=== PATIENT | male | born 1935 | race African-American/Black ===

== ENCOUNTER 2021-11-16 11:58 | Outpatient (CLI) | payer MEDICARE | END 2021-11-16 11:59 | disposition home or self-care (01) | LOC: MADCT 11:58 | DX: Z01.812 Encounter for preprocedural laboratory examination (principal) | CPT/HCPCS: 36415; 82565 ==

== ENCOUNTER 2021-11-26 07:41 | Outpatient (CLI) | payer MEDICARE | END 2021-11-26 07:42 | disposition home or self-care (01) | LOC: MADCT 07:41 | PROVIDERS: ATTEND Nurse Practitioner Family | DX: N30.01 Acute cystitis with hematuria (principal); I71.4 Abdominal aortic aneurysm, without rupture; N20.2 Calculus of kidney with calculus of ureter; J90 Pleural effusion, not elsewhere classified; Z96.0 Presence of urogenital implants | CPT/HCPCS: 36415; 74176; 82565 ==